=== PATIENT | female | born 1940 | race Caucasian/White ===

== ENCOUNTER 2022-10-26 14:58 | Emergency (ER) | payer MEDICARE ==
[2022-10-26] MEDS: Nystatin Crm 15 GM Tube ONE (15:20)
[2022-10-26 15:46] LABS: ANION GAP 17.2 mmol/L (5-15)
[2022-10-26] MEDS: Nystatin Ointment 15 GM Tube TOP SCH (17:00)
== END 2022-10-26 18:00 ==
LOC: KA.ED 14:58
DX: K76.82 Hepatic encephalopathy (principal); L89.152 Pressure ulcer of sacral region, stage 2; E72.20 Disorder of urea cycle metabolism, unspecified; R74.02 Elevation of levels of lactic acid dehydrogenase [LDH]; K76.0 Fatty (change of) liver, not elsewhere classified; I13.0 Hypertensive heart and chronic kidney disease with heart failure and stage 1 through stage 4 chronic kidney disease, or unspecified chronic kidney disease; E11.22 Type 2 diabetes mellitus with diabetic chronic kidney disease; N18.30 Chronic kidney disease, stage 3 unspecified; I50.9 Heart failure, unspecified; N17.9 Acute kidney failure, unspecified; I48.91 Unspecified atrial fibrillation; I25.2 Old myocardial infarction; G30.9 Alzheimer's disease, unspecified; F02.80 Dementia in other diseases classified elsewhere, unspecified severity, without behavioral disturbance, psychotic disturbance, mood disturbance, and anxiety; E05.90 Thyrotoxicosis, unspecified without thyrotoxic crisis or storm; Z91.041 Radiographic dye allergy status; Z88.2 Allergy status to sulfonamides; Z79.82 Long term (current) use of aspirin; Z79.899 Other long term (current) drug therapy
CPT/HCPCS: 36415; 71045; 80053; 81003; 82140; 83605; 85025; 87040; 99284; 99285; A9270-GY